=== PATIENT | male | born 1955 | race Caucasian/White ===

== ENCOUNTER 2020-03-24 13:47 | Outpatient (CLI) | payer MEDICARE, MEDICAID, SELFPAY ==
--- NOTE | ~2020-03-24 | CT_ITS ---
EXAMINATION:CT chest wo con DATE: 03/24/2020 14:15 INDICATION: Esophageal cancer. TECHNIQUE: Computed tomography (CT) of the chest was performed without intravenous contrast. Automate d exposure control and iterative reconstruction technique were employed. The dose-length product (DLP ) was 446.93 mGy-cm. COMPARISON: Chest CT 08/02/2018, 02/06/2018 FINDINGS: There is mild atelectasis bilaterally. Calcified right lung nodules and calcified central l ymph nodes are consistent with old granulomatous disease. There is mild scarring in the paramediastin al upper lobes. No pleural effusion. There is a left subclavian port with tip in the superior vena ca va. The heart size is normal. There are coronary artery calcifications. No pericardial effusion. Ther e is ectasia of ascending aorta measuring 4.0 cm. Calcifications in the liver and spleen are consiste nt with old adenomatous disease. There is a gastrostomy tube in expected position. There is focal wal l thickening of the esophagus superior to the aortic arch. There are masses in the adrenal glands snow suring up to 1.7 cm on the left measuring low-attenuation, stable from 02/06/2018, consistent with ad enomas. There are bridging endplate osteophytes at multiple levels in the spine, consistent with diff use idiopathic skeletal hyperostosis (DISH). There is mild thoracic spondylosis. IMPRESSION: 1. Focal wall thickening of the esophagus superior to the aortic arch with interval improvement, cons istent with treated primary malignancy. No evidence of metastatic disease. Reviewed, dictated and finalized at location A. OR'S ASSISTANT IMPRESSION: 1. Focal wall thickening of the esophagus superior to the aortic arch with inte rval improvement, consistent with treated primary malignancy. No evidence of me tastatic disease.
== END 2020-03-24 13:48 | disposition home or self-care (01) ==
PROVIDERS: Visit Provider Radiology Radiation Oncology
DX: Z85.01 Personal history of malignant neoplasm of esophagus (principal)
CPT/HCPCS: 71250

== ENCOUNTER 2021-06-15 12:11 | Outpatient (NON) | payer MEDICARE, MEDICAID, SELFPAY | END 2021-06-15 12:12 | disposition home or self-care (01) | PROVIDERS: Visit Provider Internal Medicine Medical Oncology | DX: C15.3 Malignant neoplasm of upper third of esophagus (principal) | CPT/HCPCS: 88342 ==